=== PATIENT | female | born 2000 | race Caucasian/White ===

== ENCOUNTER 2020-12-01 00:15 | Emergency (ER) | payer BC ==
[2020-12-01 00:31] VITALS: BP 107/62; PULSE 64; RESP 18; TEMP 97.7
--- NOTE | 2020-12-01 01:16 | ED ---
General Adult HPI - General Chief complaint: GI Bleed Stated complaint: blood in stool Time Seen by Provider: 12/01/20 00:34 Source: patient Mode of arrival: ambulatory - History of Present Illness Initial comments: 20-year-old female with a past medical history of diabetes mellitus, hypertension, anemia presents to the emergency room for a chief complaint of rectal bleeding. Patient states she was having vaginal and anal intercourse. Right afterwards she had a bowel movement and noticed there was bright red blood in her bowel movement. This concerned her as she has a history of anemia. Patient states she felt weaker and thought it could be because she was anemic.Patient has no other complaints at this time including shortness of breath, chest pain, abdominal pain, nausea or vomiting, headache, or visual changes. - Related Data Allergies Allergy/AdvReac Type Severity Reaction Status Date / Time latex AdvReac Rash/Hives Verified 12/01/20 00:31 Review of Systems ROS Statement: Those systems with pertinent positive or pertinent negative responses have been documented in the HPI. ROS Other: All systems not noted in ROS Statement are negative. Past Medical History Past Medical History: Diabetes Mellitus, Hypertension Additional Past Medical History / Comment(s): anemia History of Any Multi-Drug Resistant Organisms: None Reported Additional Past Surgical History / Comment(s): thoracic/lumbar surgery Past Psychological History: ADD/ADHD, Anxiety, Bipolar, Depression Smoking Status: Current every day smoker, Vaper Past Alcohol Use History: Occasional Past Drug Use History: Marijuana General Exam General appearance: alert, in no apparent distress Head exam: Present: atraumatic Eye exam: Present: normal appearance, PERRL, EOMI. Absent: scleral icterus, conjunctival injection ENT exam: Present: normal exam, mucous membranes moist Neck exam: Present: normal inspection, full ROM. Absent: tenderness Respiratory exam: Present: normal lung sounds bilaterally. Absent: respiratory distress, wheezes Cardiovascular Exam: Present: regular rate, normal rhythm, normal heart sounds GI/Abdominal exam: Present: soft. Absent: distended, tenderness Rectal exam: Present: normal inspection (No bleeding noted. 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 Patient is well-appearing. HPI and physical exam as documented. Patient very concerned she is anemic. CBC was obtained which revealed a hemoglobin of 13.6. At this time patient is not having active bleeding intermediate discharged home. - Lab Data Result diagrams: 12/01/20 01:15 Lab Results 12/01/20 Range/Units 01:15 WBC 11.9 H (3.8-10.6) k/uL RBC 5.09 (3.80-5.40) m/uL Hgb 13.6 (11.4-16.0) gm/dL Hct 43.6 (34.0-46.0) % MCV 85.6 (80.0-100.0) fL MCH 26.7 (25.0-35.0) pg MCHC 31.2 (31.0-37.0) g/dL RDW 15.7 H (11.5-15.5) % Plt Count 320 (150-450) k/uL MPV 7.3 Neutrophils % 63 % Lymphocytes % 28 % Monocytes % 5 % Eosinophils % 2 % Basophils % 0 % Neutrophils # 7.4 (1.3-7.7) k/uL Lymphocytes # 3.4 (1.0-4.8) k/uL Monocytes # 0.6 (0-1.0) k/uL Eosinophils # 0.2 (0-0.7) k/uL Basophils # 0.0 (0-0.2) k/uL Disposition Clinical Impression: Rectal bleeding Disposition: HOME SELF-CARE Condition: Good Instructions (If sedation given, give patient instructions): Gastrointestinal Bleeding (ED) Additional Instructions: please follow up with your doctor in one to 2 days. Return to the emergency room for any worsening symptoms. Is patient prescribed a controlled substance at d/c from ED?: No Referrals: Klever Langston MD [Primary Care Provider] - 1-2 days Time of Disposition: 01:35
[2020-12-01 01:30] LABS: Basophils % (A) 0 %; Eosinophils # (A) 0.2 k/uL (0-0.7); Eosinophils % (A) 2 %; HCT 43.6 % (34.0-46.0); HGB 13.6 gm/dL (11.4-16.0); Lymphocytes # (A) 3.4 k/uL (1.0-4.8); Lymphocytes % (A) 28 %; MCH 26.7 pg (25.0-35.0); MCHC 31.2 g/dL (31.0-37.0); MCV 85.6 fL (80.0-100.0); Mean Platelet Volume 7.3; Monocytes # (A) 0.6 k/uL (0-1.0); Monocytes % (A) 5 %; Neutrophils # (A) 7.4 k/uL (1.3-7.7); Neutrophils % (A) 63 %; Platelet Count 320 k/uL (150-450); RBC 5.09 m/uL (3.80-5.40); RDW 15.7 % (11.5-15.5); WBC 11.9 k/uL (3.8-10.6)
== END 2020-12-01 02:20 | disposition home or self-care (01) ==
LOC: EC 00:15
DX: K62.5 Hemorrhage of anus and rectum (principal); F17.290 Nicotine dependence, other tobacco product, uncomplicated; E11.9 Type 2 diabetes mellitus without complications; I10 Essential (primary) hypertension; Z91.040 Latex allergy status
CPT/HCPCS: 36415; 85025; 99283

== ENCOUNTER → 2021-03-25 | Outpatient (CLI) | payer BC ==
--- NOTE | 2021-03-25 17:28 | CONS ---
CONSULTATION DATE OF SERVICE: 03/25/2021 This 20-year-old lady has been evaluated in [facility] for possible obstructive sleep apnea, multiple movements during the night, and significant excessive daytime sleepiness. HISTORY OF PRESENT ILLNESS/SLEEP-WAKE EVALUATION: Patient's usual sleep schedule is from 3 a.m. until 7 or 8 a.m. No problems with falling asleep. Has TV set in bedroom. Usually sleeps on the side position. Positive history of very loud snoring and witnessed episodes of stopped breathing during sleep. Patient wakes up from sleep 4 times with nocturia. Positive history of grinding teeth, dry mouth, panic attacks, heartburn, sleeptalking, twitching of her legs during the night, possible [id number]-vq-[id number] movements during sleep. Positive history of hypnagogic hallucinations. No history of sleep paralysis or cataplexy. In the morning the patient wakes up tired, has difficulties paying attention, falling asleep during the day, worries about her sleep, has problems with memory, concentration, irritability, depression and anxiety. [place] Sleepiness Scale is in extremely high range at 20. The patient drinks up to 4 caffeinated beverages during the day and takes up to 2 naps a day, usually around noontime. PAST MEDICAL HISTORY: Positive for ADHD, hypertension, hyperlipidemia, acid reflux, diabetes mellitus, bipolar disorder, anemia. PAST SURGICAL HISTORY: Thoracic fusion. MEDICATIONS: 1. Concerta 30 mg once a day. 2. Abilify 10 mg once a day. 3. Lexapro 10 mg once a day. 4. Invokana 100 mg once a day. 5. Atorvastatin 10 mg once a day. 6. Glipizide 10 mg once a day. 7. Lisinopril 10 mg once a day. 8. Omeprazole 20 mg once a day. 9. Famotidine 20 mg once a day. SOCIAL HISTORY: Positive for using . Alcohol consumption rarely. FAMILY HISTORY: Hypertension, snoring, arthritis, diabetes, mental illness. REVIEW OF SYSTEMS: Multiple awakenings from sleep, significant amount of movements during sleep, significant excessive daytime sleepiness. No fevers. No double vision. No recent chest pain. No shortness of breath. No abdominal pain. No bleeding episodes. No blood in the urine. No seizure episodes. PHYSICAL EXAMINATION: GENERAL: Pleasant lady without distress. VITAL SIGNS: BP 152/89, HR 91, RR 20, height 5 feet 5 inches, weight 358.8 pounds, body mass index 59.5, temperature 97.5, oxygen saturation at room air 96%. HEENT: GRACIELA FAYEMI, evaluation of oropharynx showed tongue protrudes midline. Low position of soft palate; Mallampati II to III. Wide pillars. Small oropharyngeal air space. NECK: Supple, no JVD. Thyroid is not palpable. Extremely wide neck; 18-1/2 inches in circumference. LUNGS: Clear to percussion and to auscultation. Good air exchange. No wheezing or rhonchi. HEART: S1, S2 regular. No murmurs, gallops, or rubs. ABDOMEN: Obese. EXTREMITIES: No clubbing or cyanosis. ALTO SINGER: Awake, alert, and oriented X3. Cranial nerves 2 to 7 intact. There is no fasciculation or atrophy. noted. No focal deficits observed. IMPRESSION: 1. Loud snoring, witnessed episodes of stopped breathing during sleep, multiple awakenings from sleep, small oropharyngeal air space, wide neck, 18-1/2 inches in circumference, significant sleepiness by [place] Sleepiness Scale; obstructive sleep apnea-hypopnea syndrome. Possible obesity hypoventilation. 2. Possibly xqe-od-rizww movements during sleep; REM sleep behavioral disorder. 3. Restless leg symptoms. 4. Morbid obesity; BMI 59.5. 5. History of attention deficit hyperactivity disorder. 6. History of restless leg symptoms and possibly periodic limb movements. 7. Significant sleepiness with [place] Sleepiness Scale in extremely high range at 20, dictating necessity to include hypersomnia and narcolepsy in differential diagnosis. The patient also possibly has hypnagogic hallucinations. 8. Hypertension. 9. Hyperlipidemia. 10.Acid reflux. 11.Bipolar. 12.Diabetes mellitus. 13.History of iron deficiency anemia. PLAN: 1. Polysomnography for evaluation of patient's breathing during sleep, to check for leg movements and possibly kdu-sq-zvrwr movements during the night. 2. CPAP/BiPAP titration if sleep study confirms obstructive sleep apnea-hypopnea syndrome. 3. Preferable position during sleep on the side. 4. No driving if patient feels any sleepiness. 5. I will see patient for follow up visit to explain results of testing and following plan. Thank you very much for referring this patient for consultation. Sincerely, Grant Doshi MD, PhD, FAASM Diplomat of [employer] Sleep Medicine Board of [employer] [facility] [facility] [place] SOFI / DARREL: [id number] /
== END | disposition home or self-care (01) ==
LOC: SLEEP 15:30
PROVIDERS: ATTEND Internal Medicine
DX: G47.33 Obstructive sleep apnea (adult) (pediatric) (principal); G25.81 Restless legs syndrome; E66.01 Morbid (severe) obesity due to excess calories; I10 Essential (primary) hypertension; E78.5 Hyperlipidemia, unspecified; K21.9 Gastro-esophageal reflux disease without esophagitis; E11.9 Type 2 diabetes mellitus without complications; F31.9 Bipolar disorder, unspecified; Z86.2 Personal history of diseases of the blood and blood-forming organs and certain disorders involving the immune mechanism; Z86.69 Personal history of other diseases of the nervous system and sense organs; Z68.43 Body mass index [BMI] 50.0-59.9, adult
CPT/HCPCS: 99211

== ENCOUNTER → 2021-04-26 | Outpatient (CLI) | payer BC ==
--- NOTE | 2021-04-26 12:19 | FL ---
ESOPHOGRAM. HISTORY: Dysphagia Esophagram was performed per the air contrast technique. The patient swallowed barium and effervesce nt crystals without difficulty or delay. Esophageal peristalsis and motility appear to be within normal limits. There is no evidence for filling defect, mass or diverticulum. No hiatal hernia seen. Subsequently single contrast cervical esophagram was performed which fails demonstrate evidence for a spiration penetration or mass. IMPRESSION: Unremarkable study.
== END | disposition home or self-care (01) ==
LOC: RADUSWWP 10:52
PROVIDERS: ATTEND Surgery Plastic and Reconstructive Surgery
DX: K21.00 Gastro-esophageal reflux disease with esophagitis, without bleeding (principal); R13.10 Dysphagia, unspecified
CPT/HCPCS: 74220

== ENCOUNTER 2024-04-29 08:50 | Day surgery (SDC) | payer OTHER ==
[2024-04-25 17:52] VITALS: BMI 57.8
[~2024-04-29 08:50] MED LIST: LACTATED RINGERS 1,000 ML IV SCH; LIDOCAINE 1% (10MG/ML) FOR IV START INTRADERMA PRN
[2024-04-29] MEDS: IV FLUID CONTINUATION 1,000 ML IV ONE (09:06)
[2024-04-29 09:20] VITALS: TEMP 97.7
[2024-04-29 09:22] LABS: Glucose,Whole Blood 100 mg/dL (70-110)
[2024-04-29] MEDS ORDERED: LIDOCAINE 1% INJ 10MG/ML (20 ML MDV) ONE (09:28)
[2024-04-29] MEDS ORDERED: PROPOFOL 10 MG/ML 20 ML VIAL IV ONE (09:28)
[2024-04-29 09:48] VITALS: RESP 16
[2024-04-29 10:02] VITALS: BP 140/78; PULSE 63
--- NOTE | 2024-04-29 10:14 | P.PCN ---
Date of Procedure: 04/29/24 Preoperative Diagnosis: Hiatal hernia Postoperative Diagnosis: Duodenal ulcer Hiatal hernia Procedure(s) Performed: EGD with biopsy Anesthesia: EUFEMIA Surgeon: Segundo Tellez Pathology: other (Biopsy of duodenal ulcer, antrum, GE junction) Condition: stable Disposition: same day Indications for Procedure: 24-year-old female with continued symptoms of GERD. She is supposed to be taking Protonix but has not been able to fill the prescription recently. She has been diagnosed with hiatal hernia in the past. Operative Findings: Duodenal ulcer Hiatal hernia Description of Procedure: The patient was brought into the endoscopy suite and placed in left lateral decubitus position. Adequate sedation was achieved using conscious sedation. A bite-block was placed and an endoscope was placed in the oropharynx and advanced under endoscopic visualization. The endoscope was advanced through the esophagus into the stomach, through the gastric antrum and in through the pylorus. The third portion of duodenum was visualized. The endoscope was then slowly withdrawn. The first portion of duodenum was noted to have a small duodenal ulcer. This was biopsied. He was stasis was maintained. The antrum was noted to have mild inflammatory changes. Biopsies were taken. The gastric body distended normally and the gastric folds appeared normal and flattened with insufflation. A retroflexed view of the fundus and GE junction revealed mild hiatal hernia. GE junction appeared mildly inflamed and biopsies were taken. The esophagus appeared endoscopically normal. Excess air was removed and the scope was withdrawn and the procedure was completed. The patient was sent to PACU in stable condition.
== END 2024-04-29 10:26 | disposition home or self-care (01) ==
LOC: ORWHC2ENDO 08:50
PROVIDERS: ATTEND Surgery
DX: K26.9 Duodenal ulcer, unspecified as acute or chronic, without hemorrhage or perforation (principal); K29.60 Other gastritis without bleeding; K31.A11 Gastric intestinal metaplasia without dysplasia, involving the antrum; K31.89 Other diseases of stomach and duodenum; K44.9 Diaphragmatic hernia without obstruction or gangrene; I10 Essential (primary) hypertension; E11.9 Type 2 diabetes mellitus without complications; K21.9 Gastro-esophageal reflux disease without esophagitis; F90.9 Attention-deficit hyperactivity disorder, unspecified type; F41.9 Anxiety disorder, unspecified; F32.A Depression, unspecified; F43.10 Post-traumatic stress disorder, unspecified; R41.3 Other amnesia; Z79.890 Hormone replacement therapy; Z79.899 Other long term (current) drug therapy; Z91.51 Personal history of suicidal behavior; Z91.040 Latex allergy status; Z88.8 Allergy status to other drugs, medicaments and biological substances; Z91.048 Other nonmedicinal substance allergy status
CPT/HCPCS: 43239; 81025; 88305; J2003; J2704